=== PATIENT | female | born 1945 | race Caucasian/White ===

== ENCOUNTER 2016-07-08 18:32 | Observation (INO) | payer MEDICARE, OTHER ==
[2016-07-08 18:37] VITALS: BMI 38.9
[2016-07-08] MEDS ORDERED: Sodium Chloride 0.9% 1,000 ML IV STA (19:09)
[2016-07-08 19:19] LABS: ADD MANUAL DIFF? NO
[2016-07-08 19:22] LABS: BASO # 0.02 K/mm3 (0.0-2.0); BASO % 0.3 % (0.0-3.0); EOS % 0.1 % (1.5-5.0); GRAN # 6.02 (1.4-6.5); GRAN % 76.6 % (50.0-68.0); HEMATOCRIT 30.5 % (36.0-48.0); LYMPH # 1.4 (1.2-3.4); LYMPH % 17.5 % (22.0-35.0); MEAN CELL VOLUME 72.1 fL (80.0-105.0); MEAN CORPUSCULAR HEMOGLOBIN 22.9 pg (25.0-35.0); MEAN CORPUSCULAR HGB CONC 31.8 g/dl (31.0-37.0); MEAN PLATELET VOLUME 9.9 fl (7.0-11.0); MONO # 0.4 (0.1-0.6); MONO % 5.5 % (1.0-6.0); PLATELET COUNT 249 10^3/uL (120.0-450.0); RED CELL DISTRIBUTION WIDTH 18.1 % (11.5-14.5); WHITE BLOOD COUNT 7.9 10^3/ul (4.5-11.0)
[2016-07-08 19:23] LABS: VENOUS BLOOD GAS BASE EXCESS 3.1 mmol/L (0.0-2.0); VENOUS BLOOD PH 7.37 (7.32-7.43)
--- NOTE | 2016-07-08 19:28 | ED PDOC ---
Arrival/HPI - General Chief Complaint: Fever Time Seen by Provider: 07/08/16 18:41 Historian: Patient, Family - History of Present Illness Narrative History of Present Illness (Text): 07/08/16 19:25 71 year old female, whose past medical history includes liver transplant, presents to the emergency room complaining of abdominal and right sided pain that developed yesterday. Patient's daughter notes that the patient felt weak and had shortness of breath along with a fever. Patient's daughter states that the patient has dizziness, but denies any cough, nausea, vomiting, or any other complaints at this time. PMD: Dr. Whalen 07/08/16 22:47 Time/Duration: 24 hours Symptom Onset: Sudden Symptom Course: Unchanged Quality: Other (pain) Activities at Onset: Rest Modifying Factors (Text): none Context: Home Associated Symptoms (Text): shortness of breath, fever, dizziness Past Medical History - Provider Review Nursing Documentation Reviewed: Yes - Cardiac Hx Cardiac Disorders: No - Pulmonary Hx Respiratory Disorders: No - Neurological Hx Neurological Disorder: No - HEENT Hx HEENT Disorder: No - Renal Hx Renal Disorder: No - Endocrine/Metabolic Hx Endocrine Disorders: No - Hematological/Oncological Hx Blood Disorders: Yes Hx Cirrhosis: Yes Hx Hepatitis C: Yes - Integumentary Hx Dermatological Disorder: No - Musculoskeletal/Rheumatological Hx Musculoskeletal Disorders: Yes Hx Rheumatoid Arthritis: Yes - Gastrointestinal Hx Gastrointestinal Disorders: No - Genitourinary/Gynecological Hx Genitourinary Disorders: No - Psychiatric Hx Psychophysiologic Disorder: No Hx Substance Use: No - Surgical History Hx Appendectomy: Yes Hx Orthopedic Surgery: Yes Family/Social History - Physician Review Nursing Documentation Reviewed: Yes Family/Social History: No Known Family HX Smoking Status: Never Smoked Hx Alcohol Use: No Hx Substance Use: No Allergies/Home Meds Allergies/Adverse Reactions: Allergies No Known Allergies Allergy (Verified 07/08/16 18:37) Home Medications: Home Meds Medication Instructions Recorded Confirmed Ascorbic Acid [Vitamin C] 500 mg PO DAILY 07/08/16 07/09/16 Calcium/Vitamin D [Oyster Shell 1 tab PO BID 07/08/16 07/09/16 Calcium/Vitamin D 500 mg-200 IU] Cholecalciferol (Vitamin D3) 1 cap PO DAILY 07/08/16 07/09/16 [Vitamin D3] Docusate Sodium [Turcios' 1 cap PO BID 07/08/16 07/09/16 Laxative] Everolimus [Zortress] 0.5 mg PO BID 07/08/16 07/09/16 Magnesium Oxide [Mag-Ox] 400 mg pe PO BID 07/08/16 07/09/16 Multivitamin [Multivitamins] 1 tab PO DAILY 07/08/16 07/09/16 Mycophenolate Mofetil 500 mg PO BID 07/08/16 07/09/16 Pantoprazole [Protonix EC Tab] 40 mg PO DAILY 07/08/16 07/09/16 Sennosides/Docusate Sodium [Senna 2 tab PO HS 07/08/16 07/09/16 Laxative Tablet] Ursodiol [Actigall] 300 mg PO TID 07/08/16 07/09/16 Review of Systems - Physician Review All systems were reviewed & negative as marked: Yes - Review of Systems Constitutional: Fevers, Other (weakness/dizziness) Respiratory: SOB. absent: Cough Gastrointestinal: Abdominal Pain. absent: Nausea, Vomiting Physical Exam Vital Signs Reviewed: Yes Vital Signs Temp Pulse Resp BP Pulse Ox 07/09/16 00:17 97.5 F L 95 H 20 157/84 H 07/08/16 23:54 98.9 F 85 18 122/63 96 07/08/16 22:06 18 98 07/08/16 22:01 83 18 135/68 91 L 07/08/16 19:32 100.6 F H 07/08/16 18:37 100.6 F H 99 H 16 131/82 92 L Temperature: Febrile Blood Pressure: Normal Pulse: Regular Respiratory Rate: Normal Appearance: Positive for: Well-Appearing, Non-Toxic, Comfortable Pain Distress: None Mental Status: Positive for: Alert and Oriented X 3 - Systems Exam Head: Present: Atraumatic, Normocephalic Pupils: Present: PERRL Extroacular Muscles: Present: EOMI Conjunctiva: Present: Normal Mouth: Present: Moist Mucous Membranes Neck: Present: Normal Range of Motion Respiratory/Chest: Present: Clear to Auscultation, Good Air Exchange. No: Respiratory Distress, Accessory Muscle Use Cardiovascular: Present: Regular Rate and Rhythm, Normal S1, S2. No: Murmurs Abdomen: Present: Tenderness (mild nonfocal abdominal ), Distention, Normal Bowel Sounds Upper Extremity: Present: Normal Inspection. No: Cyanosis, Edema Lower Extremity: Present: Normal Inspection. No: Edema Neurological: Present: GCS=15, CN II-XII Intact, Speech Normal Skin: Present: Warm, Dry, Normal Color. No: Rashes Psychiatric: Present: Alert, Oriented x 3, Normal Insight, Normal Concentration Medical Decision Making ED Course and Treatment: 07/08/16 19:20 Impression: 71 year old female with shortness of breath and abdominal pain. Differential Diagnosis included but are not limited to: R/O PNA, UTI, other intraabdominal infectious/source pt on immunosuppressants will cover empircally Plan: -- EKG -- Chest Xray -- Labs -- Urinalysis -- IV fluids -- Tylenol -- Reassess and disposition Prior Visits: Notes and results from previous visits were reviewed. Progress Notes: EKG: Ordered, reviewed, and independently interpreted the EKG. Rate : 100 BPM Rhythm : NSR Interpretation : Non specific ST/T changes Comparison : No previous EKG for comparison. 07/08/16 22:[address] whalen. accepts for admission. ct pending - Lab Interpretations Lab Results: 07/08/16 18:54 07/08/16 18:54 Lab Results 07/08/16 19:24: Urine Color Yellow, Urine Appearance Clear, Urine pH 6.0, Ur Specific [place] 1.010, Urine Protein 30 H, Urine Glucose (UA) Negative, Urine Ketones Negative, Urine Blood Large H, Urine Nitrate Negative, Urine Bilirubin Negative, Urine Urobilinogen 0.2, Ur Leukocyte Esterase Trace H, Urine RBC 25 - 30, Urine WBC 2 - 5, Ur Epithelial Cells 1 - 3 07/08/16 18:54: WBC 7.9, RBC 4.23, Hgb 9.7 L, Hct 30.5 L, MCV 72.1 L, MCH 22.9 L , MCHC 31.8, RDW 18.1 H, Plt Count 249, MPV 9.9, Gran % 76.6 H, Lymph % (Auto) 17.5 L, [place] % (Auto) 5.5, Eos % (Auto) 0.1 L, Baso % (Auto) 0.3, Gran # 6.02, Lymph # 1.4, [place] # 0.4, Eos # 0.0, Baso # 0.02, PT 10.4, INR 0.96, APTT 32.7 H , pO2 39, VBG pH 7.37, VBG pCO2 51.0, VBG HCO3 29.5 H, VBG Total CO2 31.1 H, VBG O2 Sat (Calc) 76.6 H, VBG Base Excess 3.1 H, VBG Potassium 4.4, Glucose 164 H, Lactate 0.9, FiO2 21.0, Sodium 135.0, Potassium 4.1, Chloride 103.0, Carbon Dioxide 28, Anion Gap 11, BUN 21, Creatinine 1.4, Est GFR ( Amer) 45, Est GFR (Non-Af Amer) 37, Random Glucose 158 H, Calcium 9.2, Magnesium 2.2, Total Bilirubin 0.8, AST 42 H, ALT 46, Alkaline Phosphatase 181 H, Lactate Dehydrogenase 542, Total Creatine Kinase 39, Troponin I 0.02, Total Protein 7.9 , Albumin 3.8, Globulin 4.1, Albumin/Globulin Ratio 0.9 L, Lipase 34, Venous Blood Potassium 4.4, Influenza Typ A,B (EIA) Negative for flu a/b I have reviewed the lab results: Yes - RAD Interpretation Radiology Orders: 07/08/16 19:09 CHEST PORTABLE [RAD] Stat 07/08/16 19:27 ABD & PELVIS W/O PO OR IV CONT [CT] Stat - EKG Interpretation Interpreted by ED Physician: Yes Type: 12 lead EKG - Medication Orders Current Medication Orders: Ascorbic Acid (Vitamin C 500 Mg Tab) 500 mg PO DAILY [facility] Calcium/Vitamin D (Oscal-D 250 Mg-125 Units Tab) 2 tab PO BID [facility] Enoxaparin Sodium (Lovenox) 40 mg SC DAILY [facility] Last Admin: 07/09/16 10:04 Dose: 40 MG Protocol for PTT Monitoring Document 07/09/16 10:04 SD (Rec: 07/09/16 10:04 [place] [facility] [id number] Protocol Protocol for PTT Monitoring Following clinical pathway protocol (regime/therapy) Subcutaneous Administrations Document 07/09/16 10:04 SD (Rec: 07/09/16 10:04 SD [facility] [id number]) Injection Site MAR Injection Site Left Abdomen Charges for Administration # of Subcutaneous Administrations 1 Piperacillin Sod/Tazobactam Sod (Zosyn 3.375 In Ns 100ml) 100 mls @ 200 mls/hr IVPB Q6 MONIQUE PRN Reason: Protocol Stop: 07/16/16 12:01 Dextrose/Sodium Chloride (Dextrose 5%/0.45% Ns 1000 Ml) 1,000 mls @ 75 mls/hr IV .[id number] MONIQUE Last Admin: 07/09/16 10:04 Dose: 75 MLS/HR eMAR Start Stop Document 07/09/16 10:04 SD (Rec: 07/09/16 10:04 SD [facility] [id number]) Intravenous Solution Start Date 07/09/16 Start Time 10:04 Levalbuterol HCl (Xopenex) 1.25 mg IH [id number] PRN PRN Reason: Shortness of Breath Magnesium Oxide (Mag-Ox) 400 mg PO BID MONIQUE Multivitamins (Thera Tab) 1 tab PO DAILY [facility] Mycophenolate Mofetil (Cellcept Cap) 500 mg PO BID [facility] Non-Formulary Medication (Cholecalciferol (Vitamin D3) [Vitamin D3]) 1 cap PO DAILY [facility] Everolimus [Zortress ] 0.5 Mg (Home Med ) 0.5 mg PO BID MONIQUE Pantoprazole Sodium (Protonix Ec Tab) 40 mg PO ACB MONIQUE Last Admin: 07/09/16 10:04 Dose: 40 MG Discontinued Medications Acetaminophen (Tylenol 325mg Tab) 650 mg PO STAT STA Stop: 07/08/16 19:10 Last Admin: 07/08/16 19:32 Dose: 650 MG MAR Pain/Vitals Document 07/08/16 19:32 SE (Rec: 07/08/16 19:32 SE [id number]) Pain Reassessment Is This A Pain ReAssessment? No Sleep Is patient sleeping during reassessment? No Vitals Temperature (97.6 F-99.6 F) 100.6 F Temperature Source Oral Sodium Chloride (Sodium Chloride 0.9%) 1,000 mls @ 999 mls/hr IV .Q1H1M STA Stop: 07/08/16 20:09 Last Admin: 07/08/16 19:32 Dose: 999 MLS/HR eMAR Start Stop Document 07/08/16 19:32 SE (Rec: 07/08/16 19:32 SE [id number]) Intravenous Solution Start Date 07/08/16 Start Time 19:32 Piperacillin Sod/Tazobactam Sod (Zosyn 3.375 In Ns 100ml) 100 mls @ 200 mls/hr IVPB STAT STA PRN Reason: Protocol Stop: 07/08/16 23:08 Last Admin: 07/08/16 22:51 Dose: 200 MLS/HR eMAR Start Stop Document 07/08/16 22:51 SE (Rec: 07/08/16 22:51 SE [id number]) Intravenous Solution Start Date 07/08/16 Start Time 22:51 Vancomycin HCl (Vancomycin 1gm) 250 mls @ 167 mls/hr IVPB STAT STA PRN Reason: Protocol Stop: 07/09/16 00:08 Last Admin: 07/09/16 00:07 Dose: 167 MLS/HR eMAR Start Stop Document 07/09/16 00:07 EQ (Rec: 07/09/16 00:07 EQ [id number]) Intravenous Solution Start Date 07/09/16 Start Time 00:07 - Ectoribshabana Statement The provider has reviewed the documentation as recorded by the Lyric Hardy training under Moe Alberts All medical record entries made by the yLric were at my direction and personally dictated by me. I have reviewed the chart and agree that the record accurately reflects my personal performance of the history, physical exam, medical decision making, and the department course for this patient. I have also personally directed, reviewed, and agree with the discharge instructions and disposition. Disposition/Present on Arrival - Present on Arrival Any Indicators Present on Arrival: No History of DVT/PE: No History of Uncontrolled Diabetes: No Urinary Catheter: No History of Decub. Ulcer: No History Surgical Site Infection Following: None - Disposition Have Diagnosis and Disposition been Completed?: Yes Diagnosis: Colitis Disposition: HOSPITALIZED Disposition Time: 10:00 Condition: FAIR
[2016-07-08 19:33] LABS: ALB/GLOB RATIO 0.9 (1.1-1.8); BILIRUBIN,TOTAL 0.8 mg/dL (0.2-1.3); CALCIUM 9.2 mg/dL (8.4-10.5); MAGNESIUM 2.2 mg/dL (1.7-2.2); POTASSIUM 4.1 mmol/L (3.6-5.0); TOTAL PROTEIN 7.9 g/dL (5.8-8.3)
[2016-07-08 19:36] LABS: URINE BILIRUBIN NEGATIVE (NEGATIVE); URINE BLOOD LARGE (NEGATIVE); URINE GLUCOSE (UA) NEGATIVE (NEGATIVE); URINE KETONE NEGATIVE (NEGATIVE); URINE LEUKOCYTE ESTERASE TRACE Leu/uL (NEGATIVE); URINE PROTEIN 30 mg/dL (<30 mg/dL); URINE UROBILINOGEN 0.2 E.U./dL (<1 E.U./dL)
[2016-07-08 19:37] LABS: URINE APPEARANCE CLEAR (CLEAR); URINE COLOR YELLOW (YELLOW)
[2016-07-08 19:41] LABS: INR 0.96 (0.93-1.08); PARTIAL THROMBOPLASTIN TIME 32.7 Seconds (23.7-30.8)
[2016-07-08 19:44] LABS: TROPONIN I 0.02 ng/mL
[2016-07-08 19:47] LABS: URINE RBC 25 - 30 /hpf (0-2)
[2016-07-08] MEDS ORDERED: Piperacillin/Tazobact 3.375 gm 100 ML IVPB STA (22:39)
[2016-07-08] MEDS ORDERED: Vancomycin 1gm in NS 250ml 250 ML IVPB STA (22:39)
--- NOTE | 2016-07-08 23:26 | CT ---
EXAM: CT Abdomen and Pelvis Without Intravenous Contrast CLINICAL HISTORY: 71 years old, female; Pain; Abdominal pain; Localized; Right; Prior surgery; Surgery date: 6+ months; Surgery type: Liver transplant 2013, ap; Additional info: Abd distention, right flank pain TECHNIQUE: Axial computed tomography images of the abdomen and pelvis without intravenous contrast. This CT exam was performed using one or more of the following dose reduction techniques: automated exposure control, adjustment of the mA and/or kV according to patient size, and/or use of iterative reconstruction technique. Coronal and sagittal reformatted images were created and reviewed. EXAM DATE/TIME: 07/08/2016 7:27 PM COMPARISON: No relevant prior studies available. FINDINGS: LIMITATIONS: Exam is limited by moderate streak/motion artifact. LOWER THORAX: See below. ABDOMEN: LIVER: Postoperative changes involving the liver, most likely related to the given history of previous liver transplantation. The liver has a mildly lobulated contour. No acute abnormality of the liver is seen on this unenhanced exam. GALLBLADDER AND BILE DUCTS: Gallbladder is not seen, and may be contracted or surgically absent. PANCREAS: Pancreas is diffusely fatty replaced. Scattered, tiny pancreatic calcifications, which may be related to chronic pancreatitis. No CT evidence of acute pancreatitis. SPLEEN: No acute abnormality of the spleen identified. ADRENALS: 2.6 cm low density right adrenal lesion. This has well-defined margins, and contains a tiny calcification. It is not definitely a benign adenoma given its density. Recommend follow-up CT or MR in 12 months. Alternatively, if there is a history of malignancy, consider further evaluation wi the th PET, unenhanced CT or MR. KIDNEYS AND URETERS: No acute abnormality of the kidneys seen. No evidence of hydroureteronephrosis. STOMACH AND BOWEL: Mild wall thickening thickening of the right hemicolon, associated with mild infiltration of the adjacent fat. Findings are suspicious for mild colitis. Otherwise, no definite acute abnormality of the bowel is seen, allowing for motion artifact. No evidence of small bowel obstruction. No acute abnormality of the stomach or duodenum identified. APPENDIX: Normal appendix is not seen, however, there are no significant inflammatory changes visualized in the expected location of the appendix to suggest appendicitis. Recommend clinical correlation. PELVIS: BLADDER: No acute abnormality of the bladder identified. REPRODUCTIVE:No acute abnormality of the reproductive organs is seen. No acute abnormality of the uterus identified. No evidence of large adnexal masses. ABDOMEN and PELVIS: INTRAPERITONEAL SPACE: No evidence of free intraperitoneal air or fluid. BONES/JOINTS: See below. SOFT TISSUES: Best seen on images 78-88 of series 601, there are abnormal appearing, ill-defined areas of soft tissue density in the deep soft tissues of the hips bilaterally, abutting the greater trochanters, of uncertain etiology, measuring approximately 6-7 cm, on each side. There are similar findings in the deep, lateral soft tissues of the chest wall bilaterally, image 10 of series 2. Findings do appear to partially involve the musculature. Mild, diffuse subcutaneous edema/anasarca. Post operative changes involving the anterior abdominal and pelvic wall. VASCULATURE: No evidence of abdominal aortic aneurysm. No evidence of periaortic hemorrhage. LYMPH NODES: No evidence of diffuse lymphadenopathy. IMPRESSION: - Findings suspicious for mild colitis involving the right hemicolon. Recommend clinical correlation. - Ill-defined, soft tissue density areas in the deep soft tissues of the hips and lateral chest wall bilaterally. Findings are of uncertain etiology, but could potentially represent transplant-related myositis or other transplant related soft tissue pathology. Consider nonemergent followup pelvic MRI for further evaluation. - See above for remaining findings.
[2016-07-09 01:14] VITALS: RESP 20
[2016-07-09] MEDS ORDERED: Levalbuterol 1.25 MG/3 ML Inhal Soln UD IH PRN (08:02)
--- NOTE | 2016-07-09 10:02 | RAD ---
HISTORY: fever COMPARISON: No prior. FINDINGS: LUNGS: No active pulmonary disease. PLEURA: No significant pleural effusion identified, no pneumothorax apparent. CARDIOVASCULAR: Normal. OSSEOUS STRUCTURES: Right glenohumeral arthroplasty VISUALIZED UPPER ABDOMEN: Normal. OTHER FINDINGS: None. IMPRESSION: No active disease.
[2016-07-09] MEDS: Pantoprazole 40 mg EC Tab PO SCH (10:04)
[2016-07-09] MEDS: Enoxaparin 40 mg Syringe SC SCH (10:04)
[2016-07-09] MEDS: Dextrose 5%/0.45% NS 1,000 ML IV SCH ×2 (10:04→23:27)
[2016-07-09] MEDS ORDERED: EVEROLIMUS 0.5 MG PO SCH (10:45)
--- NOTE | 2016-07-09 10:49 | CARD ---
APPROVED REPORT EKG Measurement Heart [id number] <Conclusion> Normal sinus rhythm Minimal voltage criteria for LVH, may be normal variant Nonspecific T wave abnormality Abnormal ECG
[2016-07-09] MEDS: Piperacillin/Tazobact 3.375 gm 100 ML IVPB SCH ×3 (11:26→23:27)
[2016-07-09] MEDS: Calcium-Vit D 250 mg-125 Units Tab UD PO SCH ×2 (11:26→17:10)
[2016-07-09] MEDS: Multivitamin Therapeutic Tab PO SCH (11:27)
[2016-07-09] MEDS: Magnesium Oxide 400 mg Tab UD PO SCH ×2 (11:27→17:11)
--- NOTE | 2016-07-09 16:12 | CON ---
DATE: 07/09/2016 Seen and examined at the bedside earlier today. The chart was reviewed. REQUEST FOR CONSULT: For a liver transplant, on immunosuppressants. The patient is [place] speaking. The daughter is at the bedside. HISTORY OF PRESENT ILLNESS: This is a 71-year-old female with a history of hepatitis C and liver carcinoma, status post liver transplant in 2012. Transplant was done at [facility] and the patient follows Dr. Deleon at [facility] in [place] and was there last month. The patient is on immunosuppressant of Zortress and also takes mycophenolate mofetil. According to the daughter, the patient was complaining of lately feeling weak, tired and had a fever of up to 100.7 yesterday, complained of shortness of breath as well as dizziness and numbness and abdominal pain. She was seen at Dr. John's office and was sent for further evaluation. The patient complained of feeling bloated with right-sided abdominal pain. She had an episode of diarrhea, but did not report any melena or bright red blood per rectum. The patient has not had any recent travel, but had traveled to [place] last summer. Denies any contributing foods or any sick contacts. Currently does not complain of any shortness of breath or chest pain or nausea but does have abdominal pain, mostly to the right side. She went for a CT scan of abdomen and pelvis without any oral or IV contrast and found to have some findings suspicious for mild colitis as well an ill-defined soft tissue density in the hips and lateral chest wall with uncertain etiology. PAST MEDICAL HISTORY: As stated above, hepatitis C, liver cancer with liver transplant that was done in [facility]. She also has rheumatoid arthritis. PAST SURGICAL HISTORY: Liver transplant, appendectomy. FAMILY HISTORY: Noncontributory at this time. SOCIAL HISTORY: Denies smoking, ETOH, or substance abuse. ALLERGIES: No known drug allergies. MEDICATIONS: The patient takes mycophenolate mofetil 500 mg b.i.d. as well as Zortress 0.5 mg p.o. b.i.d. She is also on Protonix Actigall, sennoside docusate sodium, magnesium oxide, vitamin C, vitamin D, and Turcios laxative. REVIEW OF SYSTEMS: Systems were reviewed with positive findings, see HPI. VITAL SIGNS: Temperature is 99.1, blood pressure is 122/62, pulse is 100, respirations are 20, 94 on room air. LABORATORY DATE: WBC is 7.9, H and H are 9.7 and 30.5, platelets are 249. PT is 10.4, INR is 0.96, PTT 32.7. Sodium is 132, K 4.1, BUN 21, creatinine is 1.4 , magnesium is 2.2. Total bilirubin is 0.8, AST 42, ALT 46, alkaline phosphatase is 181. Lipase is 34. Urine is trace leukocyte esterase, large blood, negative ketones, and protein is 30 which is high. She had influenza type A/B and that was negative. Chest x-ray was done and that was negative for any active disease. The CT scan of abdomen and pelvis report was reviewed as well, and this is reporting postop changes in the liver likely related to previous liver transplant. The liver has mildly lobulated contour. No abnormality of the liver is seen on this unenhanced exam. Gallbladder is not seen; may be contracted are surgically absent. Pancreas: Diffuse fatty replaced; no CT evidence of acute pancreatitis. Spleen: No acute abnormality. There is a 2.6 low density right adrenal lesion with well-defined margins and tiny calcification. Recommend followup CT or MRI in 12 months. Stomach and bowel: Mild wall thickening in the right hemicolon associated with mild infiltration with adjacent fat suspicious for mild colitis. No acute abnormality of the stomach or duodenum. No evidence of small bowel obstruction. Appendix: Normal appendix is not seen ; however, there are no significant inflammatory changes. There is an abnormal appearing ill-defined area of soft tissue density in the deep soft tissue of the hips bilaterally abutting the greater trochanters of uncertain etiology. Mild diffuse subcutaneous edema, anasarca. No evidence of diffuse lymphadenopathy. PHYSICAL EXAMINATION: HEENT: Sclerae are anicteric. NECK: Supple. CARDIAC: S1, S2. LUNGS: With decreased breath sounds, but no rales or wheeze. ABDOMEN: With bowel sounds. Softly distended. She does have positive tenderness on palpation to the midabdomen and right upper quadrant. No rebound , guarding, or organomegaly. EXTREMITIES: Positive pedal pulses, no edema, no calf tenderness. ASSESSMENT: A 71-year-old female with past medical history of hepatitis C, liver cancer, status post liver transplant, who comes with generalized weakness , shortness of breath, and abdominal pain, status post CT scan, who also complains of diarrhea. The patient is status post CT scan, may have some mild colitis, rule out any Clostridium difficile colitis. The patient is on immunosuppressants. The patient is noted ____ as well as anemia. PLAN: Currently, patient is n.p.o. Will start on IV fluids of D5 half normal saline at 75. Will resume her immunosuppressant therapy. Continue GI prophylaxis; she is on Protonix. We will resume her immunosuppressive therapy. She is on Zortress and mycophenolate mofetil. The patient has been started on IV antibiotics as per ID, and is on DVT prophylaxis of Lovenox. Monitor LFTs and electrolytes. Will continue to follow closely. Thank you for this consult and for allowing us to participate in your patient's care. Will make further recommendations based upon patient's clinical course. The patient was seen and case discussed with Dr. Collins. Christina BEAL cc: [id number] TT: 07/09/2016 15:21:48 Confirmation # [id number] Dictation # [id number] mn CELINA
[2016-07-09] MEDS: EVEROLIMUS 0.5 MG PO SCH (17:09)
--- NOTE | 2016-07-09 18:34 | CON ---
DATE: 07/09/2016 The patient was this morning earlier in room 576, bed 2. CHIEF COMPLAINT: Temperature of 100.6 x 1 day and right flank pain x 1 day. HISTORY OF PRESENT ILLNESS: A 71-year-old [place] female with past medical history of liver transpl ant in 2012, history of rheumatoid arthritis, hepatitis C and cirrhosis and who is admitted with a di agnosis of sepsis in an immunocompromised patient. Infectious disease consultation requested. The p atient states the pain is more right-sided abdominal pain and flank pain and associated with a fever. No nausea now. She did have shortness of breath. She is weak. No dysuria or frequency. No heada ches or blurred vision. No chest pain. PAST MEDICAL HISTORY: Significant for hepatitis C, cirrhosis, rheumatoid arthritis. PAST SURGICAL HISTORY: Significant for a liver transplant in 2012, appendectomy. The patient also h ad a right shoulder surgery in the past. ALLERGIES: She has no known allergies. MEDICATIONS AT HOME: Include her immunosuppressive medications, which include mycophenolate and Acti gall and and magnesium and vitamin C and calcium. PHYSICAL EXAMINATION: GENERAL: The patient is seen in bed, in no acute distress. VITAL SIGNS: Temperature of 100.6 and a heart rate of 95, blood pressure is 150/80, respiratory rate of 20. The patient does have an O2 saturation of 94%. It was down to 91%. HEENT: Unremarkable. NECK: Supple. LUNGS: Have decreased breath sounds. HEART: Normal S1, S2. ABDOMEN: Mild tenderness in the right quadrant, no rebound, no guarding, no masses. LABORATORY EXAMINATION: Reveals a white count of 7.9, hemoglobin of 9, platelets of 249. BUN of 21, creatinine of 1.4, glucose is 139 and alkaline phosphatase is 181. WBCs 2-5 in the urinalysis, 30 p rotein. Influenza is negative. Microbiology is pending. The patient had a CAT scan of the abdomen and pelvis, which shows a colitis and a chest x-ray, which revealed no active disease. ASSESSMENT AND PLAN: A 71-year-old female, liver transplant, rheumatoid arthritis, hepatitis C, cirr hosis. Admitted with a temperature of 100.6, tachycardia and hypoxia with abdominal pain and with se vicki sepsis with colitis. We will treat the patient with Zosyn pending blood culture, urine culture, GI input and we will make further recommendations upon the availability of initial culture and rich p results. Jackson Morris MD cc: [id number] TT: 07/09/2016 18:33:30 Confirmation # [id number] Dictation # [id number]
[2016-07-10] MEDS: Piperacillin/Tazobact 3.375 gm 100 ML IVPB SCH ×4 (05:25→23:20)
[2016-07-10 06:36] LABS: ADD MANUAL DIFF? NO
[2016-07-10 06:40] LABS: BASO # 0.01 K/mm3 (0.0-2.0); BASO % 0.2 % (0.0-3.0); EOS # 0.1 (0.0-0.7); EOS % 1.2 % (1.5-5.0); GRAN # 3.32 (1.4-6.5); GRAN % 68.9 % (50.0-68.0); HEMATOCRIT 27.1 % (36.0-48.0); LYMPH % 21.2 % (22.0-35.0); MEAN CELL VOLUME 72.1 fL (80.0-105.0); MEAN CORPUSCULAR HEMOGLOBIN 22.6 pg (25.0-35.0); MEAN CORPUSCULAR HGB CONC 31.4 g/dl (31.0-37.0); MEAN PLATELET VOLUME 9.3 fl (7.0-11.0); MONO # 0.4 (0.1-0.6); MONO % 8.5 % (1.0-6.0); PLATELET COUNT 168 10^3/uL (120.0-450.0); RED CELL DISTRIBUTION WIDTH 18.4 % (11.5-14.5); WHITE BLOOD COUNT 4.8 10^3/ul (4.5-11.0)
[2016-07-10 06:51] LABS: ALB/GLOB RATIO 0.8 (1.1-1.8); BILIRUBIN,TOTAL 0.7 mg/dL (0.2-1.3); CALCIUM 8.2 mg/dL (8.4-10.5); POTASSIUM 3.5 mmol/L (3.6-5.0); TOTAL PROTEIN 6.9 g/dL (5.8-8.3)
[2016-07-10] MEDS ORDERED: Potassium Chloride 20 mEq ER Tab PO ONE (07:34)
[2016-07-10] MEDS: Pantoprazole 40 mg EC Tab PO SCH (08:31)
[2016-07-10] MEDS: Multivitamin Therapeutic Tab PO SCH (10:16)
[2016-07-10] MEDS: Enoxaparin 40 mg Syringe SC SCH (10:16)
[2016-07-10] MEDS: Magnesium Oxide 400 mg Tab UD PO SCH ×2 (10:16→19:10)
[2016-07-10] MEDS: Calcium-Vit D 250 mg-125 Units Tab UD PO SCH ×2 (10:16→19:12)
[2016-07-10] MEDS: EVEROLIMUS 0.5 MG PO SCH ×2 (10:26→19:14)
--- NOTE | 2016-07-10 11:33 | PN ---
DATE: 07/10/2016 The patient is in bed, in no acute distress, nontoxic. PHYSICAL EXAMINATION: VITAL SIGNS: Temperature is 97, blood pressure is 130/60, respiratory rate of 16. HEENT: Unremarkable. NECK: Supple. LUNGS: Have decreased breath sounds. HEART: Normal S1, S2. ABDOMEN: Soft, nontender. LABORATORY DATA: Reveals the white count is 4.8, hemoglobin of 8, platelets of 168. BUN of 12, cre atinine of 1.3. Urinalysis is noted and serology is noted. Microbiology is noted. Negative blood c ultures. The patient's renal ultrasound is pending. Christina Skelton' note is reviewed. CAT scan of the abdomen and pelvis. ASSESSMENT AND PLAN: This is a 71-year-old female with liver transplant, rheumatoid arthritis, hepat itis C, cirrhosis, admitted with a temperature of 100.6, tachycardia, hypoxia, abdominal pain with se vicki sepsis with colitis, on Zosyn, with negative blood cultures thus far, waiting for urine culture, waiting for renal ultrasound, and stool C. diff has been ordered, stool cultures have been ordered. Will follow up closely with you once further information is available. The patient appears to be im proving. Jackson Morris MD cc: 350 TT: 07/10/2016 11:32:37 Confirmation # [id number] Dictation # [id number] sophia
--- NOTE | 2016-07-10 12:37 | US ---
PROCEDURE: Ultrasound of the Kidneys HISTORY: rt side pain. hematuria COMPARISON: None available. TECHNIQUE: Sonogram of the kidneys. FINDINGS: RIGHT KIDNEY: Measures: 8.0 cm. Normal in size, contour and echogenicity. No stone, solid mass lesion or hydronephrosis visualized. LEFT KIDNEY: Measures: 10.0 cm. Normal in size, contour and echogenicity. No stone, solid mass lesion or hydronephrosis visualized. OTHER FINDINGS: None. IMPRESSION: Unremarkable renal sonogram.
--- NOTE | 2016-07-10 16:44 | PN ---
DATE: 07/10/2016 Seen and examined at the bedside earlier today. The daughter was at the bedside. The patient has le ss abdominal discomfort. She is tolerating the clear liquids, but does not like the choice of clear liquids, but no further nausea or vomiting. No reports of any acute overnight events or fevers. The patient and the daughter want to be discharged. VITAL SIGNS: Temperature is 97.7, blood pressure is 133/66, pulse 77, respirations 20, 95 on room ai r. LABORATORY DATA: WBC is 4.8, hemoglobin is 8.5 and 27.1, platelets is 168. Sodium 137, K is 3.5, BU N is 12, creatinine is 1.3. Total bilirubin is 0.7, AST 36, ALT 39, alkaline phosphatase is 141. PHYSICAL EXAMINATION: HEENT: Sclera is anicteric. NECK: Supple. CARDIAC: S1, S2. LUNGS: Sounds is with decreased breath sounds, but good air entry. ABDOMEN: With bowel sounds, soft, less tenderness on palpation. No rebound, guarding. DIAGNOSTICS: The patient has renal ultrasound which was unremarkable. There are no stones, solid ma ss, lesion or hydronephrosis visualized in the right or left kidney. ASSESSMENT: A 71-year-old female with history of hepatitis C and liver carcinoma status post liver t ransplant, on immuno therapy, came in with complaint of fever, generalized weakness, shortness of shaji ath, and abdominal pain. The patient also complains of diarrhea. She had a CT scan of the abdomen a nd pelvis and it looks like she may have colitis. We are waiting for stool studies to rule out Clost ridium difficile colitis. She is also noted to have anemia and some elevation, mainly in alkaline ph osphatase. PLAN: Her diet is going to be advanced to a soft low residual diet. She is also pending to go for a n ultrasound of the abdomen. The patient is placed on IV antibiotics as per ID of Fayesyn, and she is on Protonix 40 daily and is on her immunosuppressant of Zortress, CellCept, on Lovenox daily. She is on IV fluids, if patient is tolerating maybe we can cut this down. Urine culture is pending. A blo od culture was done, which is negative x 2. The patient has a followup to see Dr. Martinez at [facility] on 07/20/2016. The patient was seen and case discussed with Dr. Collins. Christina BEAL cc: 451 TT: 07/10/2016 16:43:02 Confirmation # [id number] Dictation # [id number] do
[2016-07-10 17:12] LABS: MEAN CORPUSCULAR HGB CONC 31.9 g/dl (31.0-37.0); MEAN PLATELET VOLUME 9.4 fl (7.0-11.0); RED CELL DISTRIBUTION WIDTH 18.2 % (11.5-14.5); WHITE BLOOD COUNT 4.6 10^3/ul (4.5-11.0)
--- NOTE | 2016-07-10 18:37 | US ---
HISTORY: pain COMPARISON: Renal ultrasound performed the same day. CT of the abdomen and pelvis without oral or IV contrast performed 07/08/16 TECHNIQUE: Sonographic evaluation of the right upper quadrant of the abdomen. FINDINGS: Examination markedly limited due to habitus. LIVER: Measures approximately 13.9 cm. Echogenic liver may be seen in setting of hepatic parenchymal disease or fatty infiltration. No focal hepatic mass identified. The main portal vein appears patent with normal directional flow. No intrahepatic bile duct dilatation. GALLBLADDER: The gallbladder is not visualized and may be contracted or surgically absent. COMMON BILE DUCT: Measures 4 mm. PANCREAS: Not well-visualized. RIGHT KIDNEY: Measures 10.7 x 3.4 x 5.3 cm. No obstructing calculus or hydronephrosis. AORTA: Limited visualization appears grossly unremarkable. IVC: Limited visualization appears grossly unremarkable. OTHER FINDINGS: None . IMPRESSION: Limited study. Echogenic liver may be seen in setting of hepatic parenchymal disease or fatty infiltration. The gallbladder is not visualized, either contracted or surgically removed.
[2016-07-11] MEDS: Dextrose 5%/0.45% NS 1,000 ML IV SCH (02:57)
[2016-07-11 03:09] LABS: URINE BILIRUBIN NEGATIVE (NEGATIVE); URINE BLOOD MODERATE (NEGATIVE); URINE GLUCOSE (UA) NEGATIVE (NEGATIVE); URINE KETONE NEGATIVE (NEGATIVE); URINE LEUKOCYTE ESTERASE NEGATIVE Leu/uL (NEGATIVE); URINE PROTEIN NEGATIVE mg/dL (<30 mg/dL); URINE UROBILINOGEN 0.2 E.U./dL (<1 E.U./dL)
[2016-07-11 03:12] LABS: URINE APPEARANCE SLIGHT-CLOUDY (CLEAR); URINE COLOR YELLOW (YELLOW)
[2016-07-11 03:27] LABS: URINE EPITHELIAL CELLS 0 - 2 /hpf (0-5); URINE WBC 0 - 2 /hpf (0-6)
[2016-07-11 03:29] LABS: URINE BACTERIA RARE (NEG)
[2016-07-11] MEDS: Piperacillin/Tazobact 3.375 gm 100 ML IVPB SCH (06:03)
[2016-07-11 08:06] VITALS: BP 151/66; PULSE 78; TEMP 97.8; O2SAT 94
--- NOTE | 2016-07-11 08:37 | PN ---
DATE: 07/11/2016 SUBJECTIVE: The patient seen earlier today. No fevers, no chills, no abdominal pain. PHYSICAL EXAMINATION: VITAL SIGNS: Temperature is 97, blood pressure is 150/70, respiratory rate of 20. HEENT: Unremarkable. NECK: Supple. LUNGS: Have decreased breath sounds. HEART: Normal S1, S2. ABDOMEN: Soft, nontender. LABORATORY DATA: Reveals the patient's white count is 4.6, hemoglobin of 8, platelets of 195 and BUN of 12, creatinine of 1.3. Urinalysis is noted. Serology is negative. Microbiology reveals the blo od cultures are no growth. Urine cultures are no growth. ASSESSMENT AND PLAN: A 71-year-old female with liver transplant, rheumatoid arthritis, hepatitis C, cirrhosis, admitted with fever, tachycardia, hypoxia, abdominal pain and severe sepsis with colitis. She insists on being discharged today, she wants to be home for [facility] tomorrow. Will discharge on p.o. Vantin and p.o. Flagyl. I highly recommended her to follow up with her transplant team early n week and Dr. John. I discussed the case with Dr. John also, who knows the patient. We will write the prescriptions for oral Flagyl and Vantin for the patient to be discharged on. Jackson Morris MD cc: 350 TT: 07/11/2016 08:36:35 Confirmation # [id number] Dictation # [id number] do
[2016-07-11] MEDS: Enoxaparin 40 mg Syringe SC SCH (09:24)
[2016-07-11] MEDS: Magnesium Oxide 400 mg Tab UD PO SCH (09:24)
[2016-07-11] MEDS: EVEROLIMUS 0.5 MG PO SCH (09:24)
[2016-07-11] MEDS: Pantoprazole 40 mg EC Tab PO SCH (09:25)
[2016-07-11] MEDS: Multivitamin Therapeutic Tab PO SCH (09:25)
[2016-07-11] MEDS: Calcium-Vit D 250 mg-125 Units Tab UD PO SCH (09:25)
[2016-07-11] MEDS ORDERED: Cefpodoxime (Vantin) 200 mg Tab PO SCH (10:00)
--- NOTE | 2016-07-11 16:37 | PN ---
DATE: 07/11/2016 SUBJECTIVE: This patient was seen and evaluated earlier. The patient's daughters were at bedside at the time of examination. Clinically appears to be much improved than before. She has been on IV an tibiotics. The CT scan findings were reviewed and discussed with the patient's daughters. The patie nt was strongly advised to . The patient has some thickening of the colon on the right side. T he patient needs to complete the antibiotic course. The patient needs reevaluation at the transplant center. The patient's family wants to go home for [facility]. The importance of the immunosuppressive status and inflammation/inflammatory etiology was explained. They fully understand. Advised to come to the ER if worsening of the symptom. Thank you very much for allowing us to participate in the care of the patient. Crissy Collins MD cc: [id number] TT: 07/11/2016 16:37:21 Confirmation # [id number] Dictation # [id number] laya
--- NOTE | 2016-07-11 18:30 | DS ---
DATE: 07/11/2016 The patient is stable. No new complaint. She wants to go home. Seen by ID. Her physical examination today, which is 07/11/2016: Temperature 97.8, heart rate 78, blood pressure 151/66, respirations 20, and saturating 96% on room a ir. HEAD AND NECK: Normal. No JVD, no thyromegaly. CHEST EXAMINATION: Clear, good entry. CARDIAC: First sound, second sound normal. ABDOMEN: Soft, obese. Tender epigastric area with incisional hernia. EXTREMITIES: No edema. NEUROLOGICALLY: Normal. LABORATORY STUDIES: Shows C. diff was negative x 2. Blood cultures x 2 was negative. Urine culture s x 2 is negative. C. diff was negative. The patient also had renal ultrasound which was negative, normal, and liver ultrasound which shows po ssible chronic liver disease. No gallbladder visualized on the study. DISCHARGE DIAGNOSES: 1. Anemia. The patient advised to follow up in the office this week for repeat CBC on Wednesday, , and report any change in medical status to me. She wants celebrate Easter with the family, and th want to take her home, so will discharge the patient and follow up as outpatient. 2. Gastritis possibly, or anemia. We will give Protonix 40 mg p.o. daily. 3. Status post liver transplant. 4. Possible colitis. PLAN: Will discharge the patient on Vantin 200 mg b.i.d., and Flagyl for 1 week, and will follow up as outpatient. Possibly the patient may have mild colitis causing her pain and her CT findings. Follow up in a week. Raffy John MD cc: 223 TT: 07/11/2016 18:29:31 Confirmation # [id number] Dictation # [id number] jn
--- NOTE | 2016-07-11 19:26 | HP ---
The patient admitted to the hospital because of fever of 100.6 and immunocompromised liver transplan t. HISTORY OF PRESENT ILLNESS: This is a 71-year-old female who came into the office earlier because of fever, and she complained of generalized weakness, tired, feeling fever, no chills. She felt nauseo us. She has also epigastric discomfort, right-sided pain, and she is currently on immunosuppressive therapy for her liver transplant. The patient also had these symptoms for the last few days; it seem s getting worse. At home her temperature was 99-100. In Emergency Room it was 100.6. The patient h ad a history of liver transplant like 5 years ago or less. She is on immunosuppressive, everolimus and Actigall therapy. She is stable otherwise. PAST MEDICAL HISTORY: As I said, chronic hepatitis C was treated. She got liver transplant a few ye ars ago. She does have chronic obesity. She has chronic osteoarthritis both knees and back. She al so had a history of high ammonia level before liver transplant. Currently, she is stable. No recurr ence. Constipation on and off. MEDICATIONS: As I mentioned, she takes Zortress, which is everolimus 0.5 mg b.i.d. She also talking Actigall 300 b.i.d., laxatives, and calcium, vitamin D p.r.n. ALLERGIES: She has no known allergies. SOCIAL HISTORY: She lives with her daughter. No smoking, no drinking. FAMILY HISTORY: Noncontributory. REVIEW OF SYSTEMS: As in the present illness, due to her morbid obesity she has some dyspnea with ex ertions. She also had chronic knee arthritis, and back arthritis which limits her ability to move. PHYSICAL EXAMINATION: As follows on 07/09/2016: Her temperature 97.5, heart rate 95, blood pressure is 157/84, respirations 20, saturation 94% to 96% on room air. HEAD AND NECK EXAMINATION: Normal. No JVD, no thyromegaly. CHEST: Clear, good entry. CARDIAC: First sound, second sound normal. ABDOMEN: Soft, obese. Mild epigastric tenderness, and mild area tenderness. EXTREMITIES: Mild edema. NEUROLOGICALLY: Normal. LABORATORIES: Shows white count 7.9, hemoglobin 9.7, hematocrit 30.5, platelets 249. Her chemistry shows sodium 137, potassium 3.5, chloride 102, bicarb 28, BUN 12, creatinine 1.3, blood sugar 125, ca lcium 8.5, total bilirubin 0.7. AST and ALT is normal. Alk phos is 141. The patient also had a CT abdomen which came in. CT abdomen and pelvis which shows findings suspicio us for colitis, right hemicolon. Recommend clinical correlations. Ill-defined soft tissue density i n the deeper structure of the soft tissue of the hips and lateral chest wall bilaterally. Finding of uncertain etiology, but could be potentially represent transplant-related myositis. IMPRESSION AND PLAN: This is a 71-year-old female who is a liver transplant on immunosuppressive, ca me in was fever. Will admit the patient for observations, etiology of the fever. Underlying infecti on as to be evaluated. Will admit the patient. Blood culture, urine culture, ID consult, Dr. David zavaleta. GI consult, Dr. Collins. Will put the patient on IV antibiotic, Zosyn, and will follow up wi th the other consultants. Will resume her immunosuppressive therapy and continue current treatment. The patient also will get Protonix 40 mg daily IV or p.o. right before breakfast, and will follow up clinically. Raffy Jhon MD cc: 223 TT: 07/11/2016 19:26:14 jn
--- NOTE | 2016-07-13 08:28 | PN ---
DATE: 07/11/2016 The patient is stable. She still complains of epigastric and right-sided pain. Otherwise, cli nically stable. PHYSICAL EXAMINATION: VITAL SIGNS: Temperature is 97.8, heart rate 77, blood pressure 133/66, respiratory rate 20, saturat ion 96% on room air. HEAD AND NECK: Normal. No JVD, no thyromegaly. CHEST: Clear, good entry. CARDIAC: First and second sounds are normal. ABDOMEN: Obese. There is mild tenderness in the epigastric area. There is also in the abdominal wa ll mild incisional hernia. EXTREMITIES: No edema. NEUROLOGIC: Normal. LABORATORY DATA: We did chemistry on her, which showed sodium 137, potassium 3.5, chloride 102, bica rbonate 28, BUN 12, creatinine 1.3, blood sugar 125. Liver function test within normal range except alk phos is 141. The patient also had a CBC which shows white count 4.8, hemoglobin 8.5, hematocrit 27.1, platelets 168. On repeat, hemoglobin was 8.3, hematocrit was 26, platelets was 195 and her whi te count 4.6 on repeat. IMPRESSION AND PLAN: 1. Abdominal discomfort, possible gastritis. The patient's condition discussed with Dr. Collins. From his GI standpoint, the patient can be discharged; however, ID consult will evaluate the patient tomorrow before discharge the patient. 2. Fever, etiology unclear in a 71-year-old immunosuppressed liver transplant patient. Blood cultur e, urine culture was negative. Chest x-ray, no active disease. He will evaluate the patient and astrid l be discharged probably in the morning on p.o. antibiotic if every culture came back negative. 3. Status post liver transplant. Continue current medications. Follow up clinically. 4. Morbid obesity, chronic osteoarthritis, stable at this time and will follow up as outpatient. Raffy John MD cc: 223 TT: 07/11/2016 18:31:18 Confirmation # [id number] Dictation # [id number] mn
== END 2016-07-11 14:16 | disposition home or self-care (01) ==
LOC: ED 18:32 → INTOOBSV 23:02 → ERH 23:02 → 5RSO 07-09 01:25
PROVIDERS: ADMIT Internal Medicine; ATTEND Internal Medicine
DX: A41.9 Sepsis, unspecified organism (principal); K52.9 Noninfective gastroenteritis and colitis, unspecified; Z94.4 Liver transplant status; R65.20 Severe sepsis without septic shock; K29.70 Gastritis, unspecified, without bleeding; R09.02 Hypoxemia; D64.9 Anemia, unspecified; K74.60 Unspecified cirrhosis of liver; B18.2 Chronic viral hepatitis C; M06.9 Rheumatoid arthritis, unspecified; M17.0 Bilateral primary osteoarthritis of knee; E66.01 Morbid (severe) obesity due to excess calories; Z68.39 Body mass index [BMI] 39.0-39.9, adult; Z85.05 Personal history of malignant neoplasm of liver
CPT/HCPCS: 36415; 71010; 74176; 76705; 76770; 80053; 81001; 82550; 82803; 82948; 83615; 83690; 83735; 84484; 85025; 85027; 85610; 85730; 87040; 87045; 87086; 87324; 87804; 93005; 96365; 96366; 96372; 96375; 96376; 97116; 97162; 99285; G0378; G8978; G8979; J0694; J1650; J2543; J7040; J7042; J7517

== ENCOUNTER 2017-06-18 15:35 | Emergency (ER) | payer MEDICARE, MEDICAID ==
[2017-06-18 15:55] VITALS: TEMP 97.5; BMI 37.5
[2017-06-18 16:10] LABS: BASO # 0.02 K/mm3 (0.0-2.0); BASO % 0.4 % (0.0-3.0); EOS # 0.1 (0.0-0.7); EOS % 1.5 % (1.5-5.0); GRAN # 3.16 (1.4-6.5); GRAN % 60.5 % (50.0-68.0); HEMOGLOBIN 9.5 g/dL (12.0-16.0); LYMPH # 1.6 (1.2-3.4); LYMPH % 29.6 % (22.0-35.0); MEAN CELL VOLUME 73.2 fl (80.0-105.0); MEAN CORPUSCULAR HEMOGLOBIN 24.1 pg (25.0-35.0); MEAN CORPUSCULAR HGB CONC 32.9 g/dl (31.0-37.0); MEAN PLATELET VOLUME 9.5 fl (7.0-11.0); MONO # 0.4 (0.1-0.6); RBC 3.95 10^6/uL (3.5-6.1); RED CELL DISTRIBUTION WIDTH 16.9 % (11.5-14.5); WHITE BLOOD COUNT 5.2 10^3/ul (4.5-11.0)
--- NOTE | 2017-06-18 16:16 | ED PDOC ---
Arrival/HPI - General Historian: Patient, Family - History of Present Illness Time/Duration: Prior to Arrival, < week Symptom Course: Intermittent Quality: Pressure, Tightness Severity Level: 7 Context: Walking - General Chief Complaint: Chest Pain Time Seen by Provider: 06/18/17 15:38 - History of Present Illness Narrative History of Present Illness (Text): 06/18/17 16:04 72F history and translation was obtained by daughter speaking Pashto; past medical history significant for HepC, Liver carcionoma, Liver transplant in 2012 presents w/ new onset of Left sided, intermittent chest pain w/ left arm heaviness for 3 days. Pain is described as squeezing and tightness. Associated w / increased nocturnal dyspnea. Of note, recent lab work was drawn by primary which showed potassium 5.9. Admits to having hx of LE swelling, and shortness of breath on exertion. Recent travel to [place], returned in March Denies: Fevers, chills, nausea, vomiting, diarrhea Translation services offered, patient declined at this time. Patient preferred daughter to translate at bedside (Pietro King) Past Medical History - Provider Review Nursing Documentation Reviewed: Yes - Travel History Have you recently traveled outside [place] w/in the past 3 mons?: No - Cardiac Hx Cardiac Disorders: Yes Hx Hypertension: Yes - Pulmonary Hx Respiratory Disorders: No - Neurological Hx Neurological Disorder: No - HEENT Hx HEENT Disorder: No - Renal Hx Renal Disorder: No - Endocrine/Metabolic Hx Endocrine Disorders: No - Hematological/Oncological Hx Blood Disorders: Yes Hx Cirrhosis: Yes Hx Hepatitis C: Yes - Integumentary Hx Dermatological Disorder: No - Musculoskeletal/Rheumatological Hx Musculoskeletal Disorders: Yes Hx Rheumatoid Arthritis: Yes - Gastrointestinal Hx Gastrointestinal Disorders: No - Genitourinary/Gynecological Hx Genitourinary Disorders: No - Psychiatric Hx Psychophysiologic Disorder: No Hx Substance Use: No - Surgical History Hx Appendectomy: Yes Hx Orthopedic Surgery: Yes Family/Social History - Physician Review Nursing Documentation Reviewed: Yes Family/Social History: Other (non-contributory) Smoking Status: Never Smoked Hx Alcohol Use: No Hx Substance Use: No Allergies/Home Meds Allergies/Adverse Reactions: Allergies No Known Allergies Allergy (Verified 06/18/17 16:17) Home Medications: Home Meds Medication Instructions Recorded Confirmed Ascorbic Acid [Vitamin C] 500 mg PO DAILY 07/08/16 06/18/17 Calcium/Vitamin D [Oyster Shell 1 tab PO BID 07/08/16 06/18/17 Calcium/Vitamin D 500 mg-200 IU] Cholecalciferol (Vitamin D3) 1 cap PO DAILY 07/08/16 06/18/17 [Vitamin D3] Everolimus [Zortress] 0.5 mg PO BID 07/08/16 06/18/17 Magnesium Oxide [Mag-Ox] 400 mg pe PO BID 07/08/16 06/18/17 Multivitamin [Multivitamins] 1 tab PO DAILY 07/08/16 06/18/17 Mycophenolate Mofetil 500 mg PO BID 07/08/16 06/18/17 Pantoprazole [Protonix EC Tab] 40 mg PO DAILY 07/08/16 06/18/17 Sennosides/Docusate Sodium [Senna 8.6 tab PO HS 07/08/16 06/18/17 Laxative Tablet] Ursodiol [Actigall] 300 mg PO TID 07/08/16 06/18/17 Review of Systems - Physician Review All systems were reviewed & negative as marked: Yes - Review of Systems Constitutional: absent: Fevers, Night Sweats Eyes: absent: Photophobia, Eye Pain ENT: absent: Hearing Changes, Tinnitus, TMJ Pain, Rhinorrhea Respiratory: SOB. absent: Cough, Sputum, Wheezing Cardiovascular: Chest Pain, Palpitations, Edema (standard, baseline). absent: Syncope Gastrointestinal: absent: Abdominal Pain, Stool Changes, Diarrhea, Nausea, Vomiting Skin: absent: Rash, Pruritis Neurological: absent: Headache, Dizziness, Focal Weakness Endocrine: absent: Diaphoresis Physical Exam Temperature: Afebrile Blood Pressure: Normal Pulse: Regular Respiratory Rate: Normal Appearance: Positive for: Well-Appearing, Non-Toxic, Comfortable Pain Distress: None Mental Status: Positive for: Alert and Oriented X 3 - Systems Exam Head: Present: Atraumatic Extroacular Muscles: Present: EOMI Conjunctiva: Present: Normal Mouth: Present: Moist Mucous Membranes Pharnyx: No: ERYTHEMA, EXUDATE, TONSILS ENLARGED Nose (External): Present: Atraumatic Neck: Present: Normal Range of Motion Respiratory/Chest: Present: Clear to Auscultation, Good Air Exchange. No: Respiratory Distress, Accessory Muscle Use, Wheezes, Rales, Rhonchi Cardiovascular: Present: Regular Rate and Rhythm, Normal S1, S2. No: Tachycardic, Bradycardic, Rub, Gallop Abdomen: Present: Scars (Right side of abdomen. well healed incision), Other ( soft). No: Tenderness, Distention, Peritoneal Signs Back: No: CVA Tenderness, Midline Tenderness Upper Extremity: Present: Normal Inspection, NORMAL PULSES Lower Extremity: Present: Edema (baseline, +1 pitting edema), CALF TENDERNESS, NORMAL PULSES. No: Andre's Sign Neurological: Present: GCS=15, Speech Normal Skin: Present: Warm, Normal Color Psychiatric: Present: Alert, Oriented x 3 Vital Signs Temp Pulse Resp BP Pulse Ox 06/18/17 17:20 66 20 134/70 98 06/18/17 15:36 97.5 F L 79 18 147/72 96 Medical Decision Making - Lab Interpretations I have reviewed the lab results: Yes - RAD Interpretation Pattern Perforating Machine Operator: Radiologist - EKG Interpretation Interpreted by ED Physician: Yes Type: 12 lead EKG Comparison: Similar to previous EKG ED Course and Treatment: 06/18/17 16:26 CBC/CMP/Cardiac Enzymes VBG Shock/BNP Chest X-ray/EKG b/l LE Duplex Zofran Aspirin re-eval and Reassess Na mildly decreased at 130, BUN/Cr above baseline 26/1.4 2/2 dehydration- Will give 500cc of IVF Troponin, and BNP within normal limits Discussed case in detail w/ Dr. John regarding chest pain rule out ACS. Will consult Dr. Alves for Cardiology After at length and detailed discussion with patient and daughter translating, patient would like to sign out against medical advice. Plan to follow up w/ Hepatobilliary specialist and PMD. Patient understands the risks of leaving care at this time including worsening of symptoms and possibility of . (Pietro King) 06/18/17 17:39 72 yo female presents to the ED c/o chest pain x 3 days intermittent. She also consistently has STERN and LE edema which daughter thinks is getting a little worse. Agree with resident note. Translations services offerred and patient chooses daughter instead for translation. Lungs: CTA no w/r/r LE: mild edema, no tenderness DDx: Chest pain r/o ACS, CHF, LE edema r/o DVT Treated hyponatremia, elevated bun/cr with IVF. Potassium treated with kayexlate. BNP and TRoponin normal. CXR nl. LE sono negative for DVT as per prelim. Patient wants to sign out AMA. Daughter explained to patient that I recommended she stay in the hospital. Despite my recommendations to stay for further evaluation of her heart, she and her daughter decided to leave AMA. She wants to go home and says she'd rather follow up with her doctor and Hepatobiliary specialisst. AMA form signed and cosigned by ALAYNA Ryder. (Elliot Shepard) - Lab Interpretations Narrative Lab Interpretation (Text): 06/18/17 16:44 WBC 5.2- WNL K+ elevated at 5.5, currently asx will give Kayexalate Na mildly decreased at 130, BUN/Cr above baseline 26/1.4 2/2 dehydration- Will give 500cc of IVF Troponin/BNP within normal limits (Pietro King) Lab Results: 06/18/17 15:45 06/18/17 15:45 Lab Results 06/18/17 16:20: pO2 51, VBG pH 7.32, VBG pCO2 50.0, VBG HCO3 25.8, VBG Total CO2 27.3, VBG O2 Sat (Calc) 86.5 H, VBG Base Excess -0.9 L, VBG Potassium 5.5 H , Glucose 121 H, Lactate 0.5 L, FiO2 21.0, Sodium 129.0 L, Chloride 101.0, Venous Blood Potassium 5.5 H 06/18/17 15:45: Sodium 130 L, Potassium 5.3 H, Chloride 99, Carbon Dioxide 19 L , Anion Gap 17, BUN 26 H, Creatinine 1.4 H, Est GFR ( Amer) 45, Est GFR ( Non-Af Amer) 37, Random Glucose 109, Calcium 9.9, Total Bilirubin 0.6, AST 39 H , ALT 22, Alkaline Phosphatase 206 H, Lactate Dehydrogenase 794 H, Total Creatine Kinase 55, Troponin I < 0.01 D, NT-Pro-B Natriuret Pep 193, Total Protein 8.2, Albumin 4.2, Globulin 4.0, Albumin/Globulin Ratio 1.0 L 06/18/17 15:45: WBC 5.2, RBC 3.95, Hgb 9.5 L, Hct 28.9 L, MCV 73.2 L, MCH 24.1 L , MCHC 32.9, RDW 16.9 H, Plt Count 295, MPV 9.5, Gran % 60.5, Lymph % (Auto) 29.6, [place] % (Auto) 8.0 H, Eos % (Auto) 1.5, Baso % (Auto) 0.4, Gran # 3.16, Lymph # (Auto) 1.6, [place] # (Auto) 0.4, Eos # (Auto) 0.1, Baso # (Auto) 0.02 - RAD Interpretation Narrative RAD Interpretations (Text): 06/18/17 16:47 Chest X-ray- no signs of acute or active disease Preliminary Vascular duplex study, Negative for DVT (Pietro King) Radiology Orders: 06/18/17 16:02 CHEST PORTABLE [RAD] Stat DUPLEX LOWER EXTRM VEIN BILAT [US] Stat - EKG Interpretation EKG Interpretation (Text): 06/18/17 16:28 Normal Sinus Rhythm, No peaked T-Waves, No ST elevation or QTc prolongation. Similar EKG to previous- Normal (Pietro King) - Medication Orders Current Medication Orders: Discontinued Medications Aspirin (Aspirin) 325 mg PO STAT STA Stop: 06/18/17 16:03 Last Admin: 06/18/17 16:13 Dose: 325 mg Sodium Chloride (Sodium Chloride 0.9%) 500 mls @ 999 mls/hr IV .Q31M STA Stop: 06/18/17 17:13 Last Admin: 06/18/17 17:24 Dose: Not Given Non-Admin Reason: Patient Refused Sodium Polystyrene Sulfonate (Kayexalate Susp) 15 gm PO STAT STA Stop: 06/18/17 16:44 Last Admin: 06/18/17 17:24 Dose: Not Given Non-Admin Reason: Patient Refused - PA / WATER RESOURCE AGENT / Resident Statement / has reviewed & agrees with the documentation as recorded. / has examined the patient and agrees with the treatment plan. Disposition/Present on Arrival - Present on Arrival Any Indicators Present on Arrival: No History of DVT/PE: No History of Uncontrolled Diabetes: No Urinary Catheter: No History of Decub. Ulcer: No History Surgical Site Infection Following: None - Disposition Have Diagnosis and Disposition been Completed?: Yes Disposition Time: 17:21 Patient Plan: Discharge - Disposition Diagnosis: Chest pain, Shortness of breath on exertion Disposition: AGAINST MEDICAL ADVICE Patient Problems: Current Active Problems Problem Status Onset Chest pain Acute Shortness of breath on exertion Acute Condition: STABLE
[2017-06-18 16:22] LABS: ALBUMIN 4.2 g/dL (3.0-4.8); ALT/SGPT 22 U/L (7-56); AST/SGOT 39 U/L (14-36); BLOOD UREA NITROGEN 26 mg/dL (7-21); CALCIUM 9.9 mg/dL (8.4-10.5); GFR AFRICAN-AMERICAN 45; GFR NON-AFRICAN AMERICAN 37
[2017-06-18 16:30] LABS: VENOUS BLOOD GAS BASE EXCESS -0.9 mmol/L (0.0-2.0); VENOUS BLOOD GAS PO2 51 mm/Hg (30-55); VENOUS BLOOD PH 7.32 (7.32-7.43)
--- NOTE | 2017-06-18 16:38 | RAD ---
HISTORY: Chest Pain COMPARISON: 07/08/2016 FINDINGS: LUNGS: No active pulmonary disease. PLEURA: No significant pleural effusion identified, no pneumothorax apparent. CARDIOVASCULAR: No radiographic findings to suggest acute or significant cardiovascular disease. OSSEOUS STRUCTURES: No significant abnormalities. VISUALIZED UPPER ABDOMEN: Normal. OTHER FINDINGS: None. IMPRESSION: No active disease. No significant interval change compared to the prior examination(s).
[2017-06-18 16:39] LABS: B-TYPE NATRIURETIC PEPTIDE 193 pg/mL (0-450)
[2017-06-18] MEDS ORDERED: Sod Polystyrene Sulf 15 gm/60 ml Susp PO STA (16:43)
[2017-06-18] MEDS ORDERED: Sodium Chloride 0.9% 500 ML IV STA (16:43)
[2017-06-18 16:49] LABS: TROPONIN I < 0.01 ng/mL
[2017-06-18 17:21] VITALS: BP 134/70; PULSE 66; RESP 20; O2SAT 98
--- NOTE | 2017-06-18 18:03 | US ---
HISTORY: Leg pain and swelling. Evaluate for DVT PHYSICIAN(S): Anthony Maguire MD. TECHNIQUE: Duplex sonography and color-flow Doppler with graded compression were used to evaluate the deep venous systems of both lower extremities. FINDINGS: The visualized deep venous systems of both lower extremities are sonographically normal and compressible. Normal wave forms and augmentation are seen. There is no sonographic evidence for deep venous thrombosis in the visualized segments of both lower extremities. IMPRESSION: No sonographic evidence for deep venous thrombosis in the visualized segments of both lower extremities.
--- NOTE | 2017-06-19 23:36 | CARD ---
APPROVED REPORT EKG Measurement Heart [id number] <Conclusion> Normal sinus rhythm Nonspecific T wave abnormality Abnormal ECG
== END 2017-06-18 17:35 | disposition left against medical advice (07) ==
LOC: ED 15:35 → ERH 17:00 → UNDOADMOB 17:00
DX: R07.9 Chest pain, unspecified (principal); R06.00 Dyspnea, unspecified; I10 Essential (primary) hypertension